=== PATIENT | male | born 1955 | race Caucasian/White ===

== ENCOUNTER 2016-09-23 17:56 | Emergency (ER) | payer OTHER, MEDICAID ==
[~2016-09-23] VITALS: Ht 170.2 cm; Wt 90.7 kg
[~2016-09-23 17:56] MED LIST: ALBU0.084 IN; ARIP1TAB5 PO; ASPI-264 PO; BUPR150T6 PO; COMIH IN; CYCL1TAB18 PO; ENAL-3 PO; FLUO20CA19 PO; GABA-339 PO; HYDROCODON-ACETAMINOPHN PO; ISOS1TAB37 PO; METO-158 PO; NIAC500T13 PO; OMEP20CA74 OR; QUET300T3 PO; ROPI2TAB4 PO; SERT-160 PO; SIMV-13 PO
[2016-09-23 18:55] LABS: Basophils # (auto) 0.1 uL; Basophils % (auto) 0.7 % (0.0-2.0); Eosinophils # (auto) 0.2 uL; Eosinophils % (auto) 1.7 % (0.0-7.0); Hematocrit 51.5 % (41.0-53.0); Hemoglobin 17.5 g/dL (13.5-17.5); Lymphocytes # (auto) 2.2 uL; Lymphocytes % (auto) 22.7 % (10.0-50.0); Mean Corpuscular Hemoglobin 29.5 pg (28.0-32.0); Mean Corpuscular Volume 86.7 fL (80.0-100.0); Mean Platelet Volume 8.6 fL (7.4-10.4); Monocytes # (auto) 0.6 uL; Neutrophils # (auto) 6.7 uL; Neutrophils % (auto) 68.9 % (37.0-80.0); Platelet Count (auto) 289 10^3/uL (140-450); Red Cell Distribution Width 14.8 % (11.6-16.0); White Blood Cell 9.8 10^3/uL (4.4-10.8)
[2016-09-23 19:18] LABS: Alkaline Phosphatase 114 U/L (45-117); Anion Gap 9 (5-15); Aspartate Aminotransferase 16 U/L (15-37); BUN/Creatinine Ratio 17.8; Bilirubin, Total 0.4 mg/dL (0.2-1.0); Blood Urea Nitrogen 19 mg/dL (7-18); Calcium 9.3 mg/dL (8.5-10.1); Carbon Dioxide 24 mmol/L (21-32); Chloride 107 mmol/L (98-107); GFR African American 90 mL/min; GFR Non-African American 74 mL/min; Glucose 121 mg/dL (74-106); Magnesium 2.2 mg/dL (1.6-2.6); Potassium 3.8 mmol/L (3.5-5.1); Sodium 140 mmol/L (136-145); Total Protein 7.2 g/dL (6.4-8.2)
[2016-09-23 19:43] VITALS: BP 129/92
== END 2016-09-24 00:26 | disposition left against medical advice (07) ==
LOC: ER 18:08
DX: R07.9 Chest pain, unspecified (principal); R42 Dizziness and giddiness; Z53.21 Procedure and treatment not carried out due to patient leaving prior to being seen by health care provider
CPT/HCPCS: 36415; 70450; 80053; 83735; 84484; 85025; 93005

== ENCOUNTER 2016-10-09 16:56 | Emergency (ER) | payer OTHER, MEDICAID ==
[~2016-10-09] VITALS: Ht 172.7 cm; Wt 91.6 kg
[2016-10-09] MEDS ORDERED: CYCLOBENZAPRINE HCL 10 MG TAB PO ONE (19:00)
[2016-10-09] MEDS ORDERED: IBUPROFEN 600 MG TAB PO ONE (19:00)
[2016-10-09 19:13] VITALS: BP 106/71
== END 2016-10-09 20:52 | disposition home or self-care (01) ==
LOC: ER 17:05
DX: S16.1XXA Strain of muscle, fascia and tendon at neck level, initial encounter (principal); S00.93XA Contusion of unspecified part of head, initial encounter; S50.01XA Contusion of right elbow, initial encounter; J44.9 Chronic obstructive pulmonary disease, unspecified; N18.9 Chronic kidney disease, unspecified; E78.5 Hyperlipidemia, unspecified; I12.9 Hypertensive chronic kidney disease with stage 1 through stage 4 chronic kidney disease, or unspecified chronic kidney disease; I25.2 Old myocardial infarction; F17.210 Nicotine dependence, cigarettes, uncomplicated; F12.10 Cannabis abuse, uncomplicated; F15.10 Other stimulant abuse, uncomplicated; F14.10 Cocaine abuse, uncomplicated; V43.62XA Car passenger injured in collision with other type car in traffic accident, initial encounter; Z79.899 Other long term (current) drug therapy; Y93.89 Activity, other specified; Y92.89 Other specified places as the place of occurrence of the external cause; Y99.8 Other external cause status
CPT/HCPCS: 70450; 72125

== ENCOUNTER 2017-06-07 19:16 | Inpatient (IN) | payer OTHER, MEDICAID ==
[~2017-06-07] VITALS: Ht 170.2 cm; Wt 108.8 kg
[2017-06-07 20:17] LABS: Basophils # (auto) 0.1 uL; Basophils % (auto) 0.7 % (0.0-2.0); Eosinophils # (auto) 0.1 uL; Eosinophils % (auto) 1.1 % (0.0-7.0); Hematocrit 51.4 % (41.0-53.0); Hemoglobin 17.2 g/dL (13.5-17.5); Lymphocytes # (auto) 1.8 uL; Lymphocytes % (auto) 18.8 % (10.0-50.0); Mean Corpuscular Hemoglobin 29.6 pg (28.0-32.0); Mean Corpuscular Hgb Conc. 33.5 g/dL (32.0-36.0); Mean Corpuscular Volume 88.5 fL (80.0-100.0); Monocytes # (auto) 0.3 uL; Monocytes % (auto) 3.3 % (0.0-12.0); Neutrophils # (auto) 7.3 uL; Neutrophils % (auto) 76.1 % (37.0-80.0); Nucleated Red Blood Cells % 0.2 %; Platelet Count (auto) 252 10^3/uL (140-450); Red Blood Cells 5.81 10^6/uL (4.5-5.90); Red Cell Distribution Width 13.8 % (11.8-14.3); White Blood Cell 9.7 10^3/uL (4.4-10.8)
[2017-06-07 20:29] LABS: Albumin 3.7 g/dL (3.4-5.0); Anion Gap 11 (5-15); BUN/Creatinine Ratio 11.5; Blood Urea Nitrogen 12 mg/dL (7-18); Calcium 8.5 mg/dL (8.5-10.1); Carbon Dioxide 21 mmol/L (21-32); Chloride 107 mmol/L (98-107); GFR African American 93 mL/min; GFR Non-African American 77 mL/min; Glucose 163 mg/dL (74-106); Magnesium 2.2 mg/dL (1.6-2.6); Potassium 3.6 mmol/L (3.5-5.1); Sodium 139 mmol/L (136-145)
[2017-06-07 20:41] LABS: Alanine Aminotransferase 41 U/L (16-61); Alkaline Phosphatase 94 U/L (45-117); Aspartate Aminotransferase 21 U/L (15-37); Bilirubin, Total 0.4 mg/dL (0.2-1.0)
[2017-06-07] MEDS ORDERED: MORPHINE SULFATE 4 MG/ML SYR/VIAL IV ONE (22:15)
[2017-06-07] MEDS ORDERED: ONDANSETRON HCL 4 MG/2 ML VIAL IV ONE (22:15)
[2017-06-07 22:46] LABS: INR 0.98 (0.9-1.15); Partial Thromboplastin Time 27.1 sec (22.64-33.71); Prothrombin Time 10.7 sec (9.37-12.3)
[2017-06-07] MEDS ORDERED: NITROGLYCERIN 0.4 MG SL TAB SL PRN (23:00)
[2017-06-07] MEDS ORDERED: ACETAMINOPHEN 325 MG TAB PO PRN (23:00)
[2017-06-07] MEDS ORDERED: QUEtiapine FUMARATE 100 MG TAB PO ONE (23:00)
[2017-06-07] MEDS ORDERED: ONDANSETRON HCL 4 MG/2 ML VIAL IV PRN (23:00)
[2017-06-07] MEDS ORDERED: HYDROcodone-ACET 5/325MG TAB PO PRN (23:00)
[2017-06-07] MEDS ORDERED: TEMAZEPAM 15 MG CAP PO PRN (23:00)
[2017-06-08] VITALS (8 sets, daily range): BP systolic 81–144; BP diastolic 54–83
[2017-06-08 05:40] LABS: Basophils # (auto) 0 uL; Basophils % (auto) 0.4 % (0.0-2.0); Eosinophils # (auto) 0.1 uL; Eosinophils % (auto) 1.3 % (0.0-7.0); Hematocrit 45.8 % (41.0-53.0); Hemoglobin 15.5 g/dL (13.5-17.5); Lymphocytes # (auto) 2.2 uL; Lymphocytes % (auto) 28.6 % (10.0-50.0); Mean Corpuscular Hemoglobin 30.2 pg (28.0-32.0); Mean Corpuscular Hgb Conc. 33.9 g/dL (32.0-36.0); Monocytes # (auto) 0.6 uL; Monocytes % (auto) 7.4 % (0.0-12.0); Neutrophils # (auto) 4.7 uL; Neutrophils % (auto) 62.3 % (37.0-80.0); Nucleated Red Blood Cells % 0.1 %; Platelet Count (auto) 198 10^3/uL (140-450); Red Blood Cells 5.14 10^6/uL (4.5-5.90); Red Cell Distribution Width 13.7 % (11.8-14.3); White Blood Cell 7.5 10^3/uL (4.4-10.8)
[2017-06-08 05:50] LABS: Albumin 3.2 g/dL (3.4-5.0); BUN/Creatinine Ratio 11.9; Calcium 8.6 mg/dL (8.5-10.1); Potassium 3.6 mmol/L (3.5-5.1)
[2017-06-08 05:53] LABS: Bilirubin, Total 0.2 mg/dL (0.2-1.0); Total Protein 5.9 g/dL (6.4-8.2)
[2017-06-08 09:49] LABS: Urine Bacteria NONE SEEN /hpf (None Seen); Urine Blood Negative /uL (Negative); Urine Mucus FEW (None Seen); Urine Specific Gravity 1.018 (1.001-1.035); Urine WBC 1 /hpf (0 - 3)
[2017-06-08] MEDS ORDERED: ENOXAPARIN SOD 40 MG/0.4 ML SYRINGE SC SCH (10:00)
[2017-06-08] MEDS ORDERED: SERTRALINE HCL 50 MG TAB PO SCH (10:00)
[2017-06-08] MEDS ORDERED: ASPirin 81 mg TAB PO SCH (10:00)
[2017-06-08] MEDS ORDERED: ENALAPRIL MALEATE 10 MG TAB PO SCH (10:00)
[2017-06-08] MEDS ORDERED: GABAPENTIN 300 MG CAP PO SCH (10:00)
[2017-06-08] MEDS ORDERED: FAMOTIDINE 20 MG TAB PO SCH (10:00)
[2017-06-08] MEDS ORDERED: ISOSORBIDE DINITRATE 10 MG TAB PO SCH (10:00)
[2017-06-08] MEDS ORDERED: METOPROLOL SUCCINATE XL 50 MG TAB PO SCH (10:00)
[2017-06-08] MEDS ORDERED: buPROPion HCL 100 MG TAB PO SCH ×2 (10:00→12:00)
[2017-06-08] MEDS ORDERED: PATIENTS OWN MEDICATION (simvastatin 40 MG) PO SCH (22:00)
[2017-06-08] MEDS ORDERED: ATORVASTATIN 20 MG TAB PO SCH (22:00)
[2017-06-08] MEDS ORDERED: QUEtiapine FUMARATE 100 MG TAB PO SCH (22:00)
== END 2017-06-08 17:21 | disposition home or self-care (01) | DRG 313 ==
LOC: ER 19:16 → TELE 19:17 → WEST WING 23:32
PROVIDERS: ADMIT Nurse Practitioner; ATTEND Internal Medicine
DX: R07.89 Other chest pain (principal); I25.10 Atherosclerotic heart disease of native coronary artery without angina pectoris; E66.9 Obesity, unspecified; E78.5 Hyperlipidemia, unspecified; F15.90 Other stimulant use, unspecified, uncomplicated; F17.210 Nicotine dependence, cigarettes, uncomplicated; F32.9 Major depressive disorder, single episode, unspecified; I10 Essential (primary) hypertension; F41.9 Anxiety disorder, unspecified; G47.00 Insomnia, unspecified; J44.9 Chronic obstructive pulmonary disease, unspecified; Z82.49 Family history of ischemic heart disease and other diseases of the circulatory system; Z83.3 Family history of diabetes mellitus; Z68.37 Body mass index [BMI] 37.0-37.9, adult; I25.2 Old myocardial infarction; Z86.73 Personal history of transient ischemic attack (TIA), and cerebral infarction without residual deficits; Z79.899 Other long term (current) drug therapy; Z90.49 Acquired absence of other specified parts of digestive tract; Z79.82 Long term (current) use of aspirin
CPT/HCPCS: 36415; 71045; 80053; 81001; 83735; 83880; 84443; 84484; 85025; 85610; 85730; 93005; 93306; 94761; 96374; 96375; J2405

== ENCOUNTER 2017-06-13 21:14 | Emergency (ER) | payer OTHER, MEDICAID ==
[~2017-06-13] VITALS: Ht 170.2 cm; Wt 90.7 kg
[~2017-06-13 21:14] MED LIST changes: -OMEP20CA74 OR; -ROPI2TAB4 PO
[2017-06-13 21:24] VITALS: BP 116/82
[2017-06-13 22:11] LABS: Basophils # (auto) 0.1 uL; Basophils % (auto) 0.9 % (0.0-2.0); Eosinophils # (auto) 0.1 uL; Eosinophils % (auto) 1.2 % (0.0-7.0); Hematocrit 50.2 % (41.0-53.0); Hemoglobin 17.1 g/dL (13.5-17.5); Lymphocytes # (auto) 2.5 uL; Lymphocytes % (auto) 25.5 % (10.0-50.0); Mean Corpuscular Hemoglobin 29.8 pg (28.0-32.0); Mean Corpuscular Hgb Conc. 34.1 g/dL (32.0-36.0); Mean Corpuscular Volume 87.3 fL (80.0-100.0); Monocytes # (auto) 0.7 uL; Monocytes % (auto) 6.8 % (0.0-12.0); Neutrophils # (auto) 6.5 uL; Neutrophils % (auto) 65.6 % (37.0-80.0); Nucleated Red Blood Cells % 0.2 %; Platelet Count (auto) 262 10^3/uL (140-450); Red Blood Cells 5.74 10^6/uL (4.5-5.90); Red Cell Distribution Width 13.4 % (11.8-14.3)
[2017-06-13 22:15] LABS: Urine Bacteria NONE SEEN /hpf (None Seen); Urine Blood Negative /uL (Negative); Urine WBC 1 /hpf (0 - 3)
[2017-06-13 22:27] LABS: Alcohol, Urine < 3.0 mg/dL (0-5); Amphetamine Screen, Urine NEGATIVE (NEGATIVE); Barbiturate Scree,Urine NEGATIVE (NEGATIVE); Benzodiazephine Screen, Urine NEGATIVE (NEGATIVE); Cannabinoid Screen, Urine NEGATIVE (NEGATIVE); Cocaine Screen, Urine NEGATIVE (NEGATIVE); Opiate Scree,Urine NEGATIVE (NEGATIVE); Phencyclidine Screen, Urine NEGATIVE (NEGATIVE)
[2017-06-13 22:34] LABS: Partial Thromboplastin Time 26.8 sec (22.64-33.71); Prothrombin Time 10.9 sec (9.37-12.3)
[2017-06-13 22:44] LABS: Alanine Aminotransferase 36 U/L (16-61); Albumin 3.7 g/dL (3.4-5.0); Alkaline Phosphatase 86 U/L (45-117); Anion Gap 10 (5-15); Aspartate Aminotransferase 14 U/L (15-37); BUN/Creatinine Ratio 14.5; Bilirubin, Total 0.3 mg/dL (0.2-1.0); Blood Urea Nitrogen 17 mg/dL (7-18); Calcium 9.1 mg/dL (8.5-10.1); Carbon Dioxide 21 mmol/L (21-32); Chloride 109 mmol/L (98-107); GFR African American 81 mL/min; GFR Non-African American 67 mL/min; Glucose 129 mg/dL (74-106); Magnesium 2.4 mg/dL (1.6-2.6); Sodium 140 mmol/L (136-145); Total Protein 7.3 g/dL (6.4-8.2)
== END 2017-06-14 05:34 | disposition left against medical advice (07) ==
LOC: ER 21:14
DX: R07.9 Chest pain, unspecified (principal); Z53.21 Procedure and treatment not carried out due to patient leaving prior to being seen by health care provider
CPT/HCPCS: 36415; 71045; 80053; 80307; 81001; 83735; 83880; 84443; 84484; 85025; 85610; 85730; 93005

== ENCOUNTER 2017-07-08 14:21 | Inpatient (IN) | payer OTHER, MEDICAID ==
[~2017-07-08] VITALS: Ht 170.2 cm; Wt 99.4 kg
[2017-07-08 07:28] VITALS: BP 113/83
[2017-07-08 15:04] LABS: Hematocrit 49.9 % (41.0-53.0); Hemoglobin 16.8 g/dL (13.5-17.5); Mean Corpuscular Hemoglobin 29.6 pg (28.0-32.0); Mean Corpuscular Hgb Conc. 33.7 g/dL (32.0-36.0); Mean Corpuscular Volume 87.9 fL (80.0-100.0); Platelet Count (auto) 265 10^3/uL (140-450); Red Blood Cells 5.67 10^6/uL (4.5-5.90); Red Cell Distribution Width 13.6 % (11.8-14.3)
[2017-07-08 15:26] LABS: Alanine Aminotransferase 47 U/L (16-61); Albumin 3.7 g/dL (3.4-5.0); Alkaline Phosphatase 88 U/L (45-117); Anion Gap 10 (5-15); Aspartate Aminotransferase 26 U/L (15-37); BUN/Creatinine Ratio 10.7; Bilirubin, Total 0.5 mg/dL (0.2-1.0); Blood Urea Nitrogen 11 mg/dL (7-18); Carbon Dioxide 21 mmol/L (21-32); Chloride 107 mmol/L (98-107); GFR African American 94 mL/min; GFR Non-African American 78 mL/min; Glucose 97 mg/dL (74-106); Potassium 4.3 mmol/L (3.5-5.1); Sodium 138 mmol/L (136-145); Total Protein 7.3 g/dL (6.4-8.2)
[2017-07-08 15:39] LABS: Band Neutrophils % (manual) 0
[2017-07-08 15:40] LABS: Basophils % (manual) 0 (0.0-2.0); Blast Cells 0; Metamyelocytes % 0; Myelocytes % 0; Promyelocytes % 0; Reactive Lymphocytes 0
[2017-07-08] MEDS ORDERED: SODIUM CHLORIDE 0.9% 1,000 ML IVB ONE (15:46)
[2017-07-08 15:48] LABS: INR 0.98 (0.9-1.15); Partial Thromboplastin Time 27.3 sec (22.64-33.71); Prothrombin Time 10.7 sec (9.37-12.3)
[2017-07-08 15:58] LABS: Eosinophils % (manual) 4 (0-7); Lymphocytes % (manual) 25 (10.0-50.0); Monocytes % (manual) 4 (0-12)
[2017-07-08 17:08] LABS: Blood Alcohol < 3.0 mg/dL (0-5); Magnesium 2.5 mg/dL (1.6-2.6)
[2017-07-08 17:21] LABS: Acetaminophen < 2.0 ug/mL (10-30); Salicylate 2.6 mg/dL (2.8-20.0)
[2017-07-08] MEDS ORDERED: MORPHINE SULFATE 4 MG/ML SYR/VIAL IV PRN (18:30)
[2017-07-08] MEDS ORDERED: NITROGLYCERIN 0.4 MG SL TAB SL PRN (18:30)
[2017-07-08] MEDS ORDERED: TEMAZEPAM 15 MG CAP PO PRN (18:30)
[2017-07-08] MEDS ORDERED: LORazepam 0.5 MG TAB PO PRN (18:30)
[2017-07-08] MEDS ORDERED: PROMETHAZINE HCL 25 MG/ML 1ML IV PRN (18:30)
[2017-07-08] MEDS ORDERED: ACETAMINOPHEN 500 MG TAB PO PRN (18:30)
[2017-07-08] MEDS ORDERED: CYCLOBENZAPRINE HCL 10 MG TAB PO PRN (18:30)
[2017-07-08] MEDS: SODIUM CHLORIDE 0.9% 1,000 ML IV SCH (18:34)
[2017-07-08] MEDS: HYDROcodone-ACET 5/325MG TAB PO PRN (18:40)
[2017-07-08] MEDS ORDERED: ARIP1TAB14 PO (19:00)
[2017-07-08] MEDS ORDERED: FLUO1TAB12 PO (19:04)
[2017-07-08] MEDS: MORPHINE SULFATE 4 MG/ML SYR/VIAL IV PRN (21:09)
[2017-07-08 22:00] VITALS: BP 113/83
[2017-07-08] MEDS ORDERED: ALBUTEROL SULF 2.5 MG/0.5ML(0.5%) NEB SOLN NEB SCH (22:00)
[2017-07-08] MEDS ORDERED: Niacin SR 500mg TAB PO SCH (22:00)
[2017-07-08] MEDS ORDERED: ALBUTEROL IN SCH (22:00)
[2017-07-08] MEDS ORDERED: IPRATROPIUM IN SCH (22:00)
[2017-07-08] MEDS: IPRATROPIUM BROM 0.5 MG/2.5ML INH SOL NEB SCH (22:06)
[2017-07-08] MEDS: ALBUTEROL SULF 2.5 MG/0.5ML(0.5%) NEB SOLN NEB SCH (22:06)
[2017-07-08] MEDS: ATORVASTATIN 20 MG TAB PO SCH (23:21)
[2017-07-08] MEDS: GABAPENTIN 400 MG CAP PO SCH (23:21)
[2017-07-09] MEDS: MORPHINE SULFATE 4 MG/ML SYR/VIAL IV PRN ×3 (03:23→22:24)
[2017-07-09] MEDS: SODIUM CHLORIDE 0.9% 1,000 ML IV SCH (04:30)
[2017-07-09 05:00] VITALS: BP 112/76
[2017-07-09] MEDS: IPRATROPIUM BROM 0.5 MG/2.5ML INH SOL NEB SCH ×3 (05:39→22:08)
[2017-07-09] MEDS: ALBUTEROL SULF 2.5 MG/0.5ML(0.5%) NEB SOLN NEB SCH ×3 (05:40→22:08)
[2017-07-09 06:05] LABS: Basophils # (auto) 0 uL; Basophils % (auto) 0.4 % (0.0-2.0); Eosinophils # (auto) 0.1 uL; Eosinophils % (auto) 0.9 % (0.0-7.0); Hematocrit 42.8 % (41.0-53.0); Hemoglobin 14.9 g/dL (13.5-17.5); Lymphocytes # (auto) 1.8 uL; Lymphocytes % (auto) 17.9 % (10.0-50.0); Mean Corpuscular Hemoglobin 30.6 pg (28.0-32.0); Mean Corpuscular Hgb Conc. 34.9 g/dL (32.0-36.0); Mean Corpuscular Volume 87.8 fL (80.0-100.0); Monocytes # (auto) 0.8 uL; Monocytes % (auto) 7.9 % (0.0-12.0); Neutrophils # (auto) 7.5 uL; Neutrophils % (auto) 72.9 % (37.0-80.0); Nucleated Red Blood Cells % 0.1 %; Platelet Count (auto) 203 10^3/uL (140-450); Red Blood Cells 4.87 10^6/uL (4.5-5.90); Red Cell Distribution Width 13.8 % (11.8-14.3); White Blood Cell 10.3 10^3/uL (4.4-10.8)
[2017-07-09] MEDS: GABAPENTIN 400 MG CAP PO SCH ×3 (06:11→21:51)
[2017-07-09 06:28] LABS: Cholesterol 181 mg/dL (< 200); HDL Cholesterol 36 mg/dL (40-59); LDL Cholesterol 123 mg/dL (< 100); Triglycerides 174 mg/dL (< 150)
[2017-07-09] MEDS ORDERED: TIOTCAP IN (09:00)
[2017-07-09] MEDS ORDERED: IBUP800T24 PO (09:00)
[2017-07-09] MEDS ORDERED: NITR0.4S29 SL (09:00)
[2017-07-09] MEDS ORDERED: AMLO5TAB2 PO (09:00)
[2017-07-09] MEDS ORDERED: LORA-653 PO (09:00)
[2017-07-09 09:02] VITALS: BP 109/70
[2017-07-09 09:51] LABS: Folate (Folic Acid) 14.99 ng/mL (5.38-24)
[2017-07-09] MEDS: METOPROLOL SUCCINATE XL 50 MG TAB PO SCH (10:00)
[2017-07-09] MEDS ORDERED: ISOSORBIDE MONONITRATE 60 MG TAB PO SCH (10:00)
[2017-07-09] MEDS ORDERED: ABILIFY 20 MG PO SCH (10:00)
[2017-07-09] MEDS ORDERED: SERTRALINE HCL 150 MG PO SCH (10:00)
[2017-07-09] MEDS ORDERED: QUETIAPINE 400 MG PO SCH (10:00)
[2017-07-09] MEDS ORDERED: NITROGLYCERIN 0.2MG/HR TOPICAL PATCH TD SCH (10:00)
[2017-07-09] MEDS ORDERED: ENALAPRIL MALEATE 10 MG TAB PO SCH (10:00)
[2017-07-09] MEDS: ASPirin-EC 325mg tab PO SCH (10:29)
[2017-07-09] MEDS: FLUoxetine HCL 20 MG CAP PO SCH (10:29)
[2017-07-09] MEDS ORDERED: LORazepam 2MG/ML-1ML VIAL IV ONE (10:30)
[2017-07-09] MEDS: HYDROcodone-ACET 5/325MG TAB PO PRN (10:43)
[2017-07-09 13:00] VITALS: BP 107/68
[2017-07-09 15:05] LABS: Urine Bacteria NONE SEEN /hpf (None Seen); Urine Blood Negative /uL (Negative); Urine WBC 1 /hpf (0 - 3)
[2017-07-09 15:11] LABS: Alcohol, Urine < 3.0 mg/dL (0-5); Amphetamine Screen, Urine NEGATIVE (NEGATIVE); Barbiturate Scree,Urine NEGATIVE (NEGATIVE); Benzodiazephine Screen, Urine NEGATIVE (NEGATIVE); Cannabinoid Screen, Urine NEGATIVE (NEGATIVE); Cocaine Screen, Urine NEGATIVE (NEGATIVE); Opiate Scree,Urine POSITIVE (NEGATIVE); Phencyclidine Screen, Urine NEGATIVE (NEGATIVE)
[2017-07-09 17:06] VITALS: BP 100/60
[2017-07-09] MEDS ORDERED: LORazepam 2MG/ML-1ML VIAL IV PRN (20:15)
[2017-07-09] MEDS: ARIPIPRAZOLE 20 MG PO SCH (21:50)
[2017-07-09] MEDS: ATORVASTATIN 20 MG TAB PO SCH (21:51)
[2017-07-09] MEDS ORDERED: SEROQUEL 400 MG PO SCH (22:00)
[2017-07-09 22:21] VITALS: BP 110/72
[2017-07-10 04:28] VITALS: BP 121/71
[2017-07-10] MEDS: GABAPENTIN 400 MG CAP PO SCH ×2 (06:01→14:00)
[2017-07-10] MEDS: IPRATROPIUM BROM 0.5 MG/2.5ML INH SOL NEB SCH ×3 (06:02→19:53)
[2017-07-10] MEDS: ALBUTEROL SULF 2.5 MG/0.5ML(0.5%) NEB SOLN NEB SCH ×3 (06:02→19:53)
[2017-07-10 08:34] VITALS: BP 113/70
[2017-07-10] MEDS: METOPROLOL SUCCINATE XL 50 MG TAB PO SCH (10:00)
[2017-07-10] MEDS: FLUoxetine HCL 20 MG CAP PO SCH (10:00)
[2017-07-10] MEDS: ASPirin-EC 325mg tab PO SCH (10:00)
[2017-07-10 10:57] LABS: Basophils # (auto) 0 uL; Basophils % (auto) 0.3 % (0.0-2.0); Eosinophils # (auto) 0 uL; Eosinophils % (auto) 0.6 % (0.0-7.0); Hematocrit 40.8 % (41.0-53.0); Hemoglobin 13.9 g/dL (13.5-17.5); Lymphocytes # (auto) 0.9 uL; Lymphocytes % (auto) 11.1 % (10.0-50.0); Mean Corpuscular Hgb Conc. 34.1 g/dL (32.0-36.0); Monocytes # (auto) 0.6 uL; Monocytes % (auto) 7.3 % (0.0-12.0); Neutrophils # (auto) 6.5 uL; Neutrophils % (auto) 80.7 % (37.0-80.0); Nucleated Red Blood Cells % 0.1 %; Platelet Count (auto) 202 10^3/uL (140-450); Red Blood Cells 4.64 10^6/uL (4.5-5.90); Red Cell Distribution Width 13.5 % (11.8-14.3)
[2017-07-10 11:04] LABS: Albumin 3.3 g/dL (3.4-5.0); BUN/Creatinine Ratio 11.7; Bilirubin, Total 0.4 mg/dL (0.2-1.0); Calcium 8.2 mg/dL (8.5-10.1); Potassium 4.1 mmol/L (3.5-5.1); Total Protein 6.5 g/dL (6.4-8.2)
[2017-07-10 12:16] VITALS: BP 109/66
[2017-07-10] MEDS ORDERED: cefTRIAXone 1GM/10ml IVPUSH 10 ML IV ONE (15:15)
[2017-07-10] MEDS ORDERED: CLINDAMYCIN 600 MG/4 ML VL IM SCH (16:00)
[2017-07-10 17:10] VITALS: BP 131/59
[2017-07-10] MEDS: CLINDAMYCIN 600MG IV 50 ML IV SCH ×2 (17:38→23:44)
[2017-07-10] MEDS: ARIPIPRAZOLE 20 MG PO SCH (21:34)
[2017-07-10] MEDS: ATORVASTATIN 20 MG TAB PO SCH (21:34)
[2017-07-10 21:43] VITALS: BP 129/90
[2017-07-11 05:00] VITALS: BP 145/91
[2017-07-11] MEDS: ALBUTEROL SULF 2.5 MG/0.5ML(0.5%) NEB SOLN NEB SCH ×3 (07:58→22:09)
[2017-07-11] MEDS: IPRATROPIUM BROM 0.5 MG/2.5ML INH SOL NEB SCH ×3 (07:58→22:09)
[2017-07-11] MEDS: HYDROcodone-ACET 5/325MG TAB PO PRN (08:01)
[2017-07-11] MEDS: CLINDAMYCIN 600MG IV 50 ML IV SCH ×3 (08:01→23:44)
[2017-07-11 08:42] VITALS: BP 149/99
[2017-07-11 09:35] VITALS: BP 149/99
[2017-07-11] MEDS: cefTRIAXone 1GM/10ml IVPUSH 10 ML IV SCH (09:40)
[2017-07-11] MEDS: ASPirin-EC 325mg tab PO SCH (09:40)
[2017-07-11] MEDS: FLUoxetine HCL 20 MG CAP PO SCH (09:41)
[2017-07-11] MEDS: METOPROLOL SUCCINATE XL 50 MG TAB PO SCH (09:41)
[2017-07-11] MEDS: MORPHINE SULFATE 4 MG/ML SYR/VIAL IV PRN ×2 (11:47→21:13)
[2017-07-11 12:16] VITALS: BP 137/88
[2017-07-11 16:34] VITALS: BP 122/83
[2017-07-11] MEDS: GABAPENTIN 400 MG CAP PO SCH ×2 (16:56→21:13)
[2017-07-11] MEDS: ARIPIPRAZOLE 20 MG PO SCH (21:13)
[2017-07-11] MEDS: ATORVASTATIN 20 MG TAB PO SCH (21:13)
[2017-07-11 22:00] VITALS: BP 152/96
[2017-07-12 05:35] VITALS: BP 121/80
[2017-07-12] MEDS: GABAPENTIN 400 MG CAP PO SCH (05:38)
[2017-07-12 07:27] VITALS: BP 128/86
[2017-07-12] MEDS: IPRATROPIUM BROM 0.5 MG/2.5ML INH SOL NEB SCH (07:55)
[2017-07-12] MEDS: ALBUTEROL SULF 2.5 MG/0.5ML(0.5%) NEB SOLN NEB SCH (07:55)
[2017-07-12] MEDS: cefTRIAXone 1GM/10ml IVPUSH 10 ML IV SCH (08:57)
[2017-07-12] MEDS: MORPHINE SULFATE 4 MG/ML SYR/VIAL IV PRN (08:57)
[2017-07-12] MEDS: CLINDAMYCIN 600MG IV 50 ML IV SCH (08:57)
[2017-07-12] MEDS ORDERED: ADENOSINE 83 MG in GIVE UN-DILUTED 0 ML IV ONE (09:15)
[2017-07-12] MEDS: METOPROLOL SUCCINATE XL 50 MG TAB PO SCH (09:41)
[2017-07-12] MEDS: ASPirin-EC 325mg tab PO SCH (10:06)
[2017-07-12] MEDS: FLUoxetine HCL 20 MG CAP PO SCH (10:06)
[2017-07-12 12:14] VITALS: BP 127/89
== END 2017-07-12 12:18 | disposition left against medical advice (07) | DRG 91 ==
LOC: ER 14:21 → TELE 14:22 → TELE-CENTR 19:30 → CENTRAL 07-11 10:50
PROVIDERS: ADMIT Internal Medicine; ATTEND Internal Medicine
DX: G92 Toxic encephalopathy (principal); A41.9 Sepsis, unspecified organism; J69.0 Pneumonitis due to inhalation of food and vomit; J44.0 Chronic obstructive pulmonary disease with (acute) lower respiratory infection; F20.9 Schizophrenia, unspecified; E11.9 Type 2 diabetes mellitus without complications; E66.9 Obesity, unspecified; E78.5 Hyperlipidemia, unspecified; F17.210 Nicotine dependence, cigarettes, uncomplicated; F31.9 Bipolar disorder, unspecified; G47.33 Obstructive sleep apnea (adult) (pediatric); G89.29 Other chronic pain; F41.9 Anxiety disorder, unspecified; M54.5 Low back pain; I10 Essential (primary) hypertension; I25.10 Atherosclerotic heart disease of native coronary artery without angina pectoris; Z79.82 Long term (current) use of aspirin; Z79.899 Other long term (current) drug therapy; Z82.0 Family history of epilepsy and other diseases of the nervous system; Z82.49 Family history of ischemic heart disease and other diseases of the circulatory system; Z83.3 Family history of diabetes mellitus; Z86.73 Personal history of transient ischemic attack (TIA), and cerebral infarction without residual deficits; Z68.34 Body mass index [BMI] 34.0-34.9, adult
CPT/HCPCS: 36415; 70450; 70551; 71045; 71046; 80053; 80061; 80307; 80320; 80329; 81001; 82550; 82607; 82746; 82962; 83605; 83735; 84443; 84484; 85007; 85025; 85027; 85379; 85610; 85652; 85730; 86141; 87040; 87081; 93005; 94640; 94761; 95819; 97163; J0153; J3490

== ENCOUNTER 2017-07-16 19:21 | Emergency (ER) | payer OTHER, MEDICAID ==
[~2017-07-16] VITALS: Ht 170.2 cm; Wt 90.7 kg
[~2017-07-16 19:21] MED LIST changes: +AMLO5TAB2 PO; +ARIP1TAB14 PO; -ARIP1TAB5 PO; +FLUO1TAB12 PO; -FLUO20CA19 PO; +IBUP800T24 PO; +LORA-653 PO; +NITR0.4S29 SL; +TIOTCAP IN
[2017-07-16 19:30] VITALS: BP 134/87
[2017-07-16 20:35] LABS: Basophils # (auto) 0.1 uL; Basophils % (auto) 0.5 % (0.0-2.0); Eosinophils # (auto) 0.2 uL; Eosinophils % (auto) 1.4 % (0.0-7.0); Hematocrit 47.9 % (41.0-53.0); Lymphocytes # (auto) 2.2 uL; Lymphocytes % (auto) 21.4 % (10.0-50.0); Mean Corpuscular Hemoglobin 29.5 pg (28.0-32.0); Mean Corpuscular Hgb Conc. 33.5 g/dL (32.0-36.0); Mean Corpuscular Volume 88.2 fL (80.0-100.0); Monocytes # (auto) 0.8 uL; Monocytes % (auto) 7.8 % (0.0-12.0); Neutrophils # (auto) 7.2 uL; Neutrophils % (auto) 68.9 % (37.0-80.0); Nucleated Red Blood Cells % 0.2 %; Platelet Count (auto) 273 10^3/uL (140-450); Red Blood Cells 5.43 10^6/uL (4.5-5.90); White Blood Cell 10.5 10^3/uL (4.4-10.8)
[2017-07-16 20:49] LABS: INR 0.99 (0.9-1.15); Prothrombin Time 10.8 sec (9.37-12.3)
[2017-07-16 20:54] LABS: Albumin 3.7 g/dL (3.4-5.0); Anion Gap 7 (5-15); Blood Urea Nitrogen 14 mg/dL (7-18); Calcium 8.9 mg/dL (8.5-10.1); Carbon Dioxide 24 mmol/L (21-32); Chloride 109 mmol/L (98-107); Glucose 102 mg/dL (74-106); Magnesium 2.1 mg/dL (1.6-2.6); Potassium 3.9 mmol/L (3.5-5.1); Sodium 140 mmol/L (136-145)
[2017-07-16 20:56] LABS: Alanine Aminotransferase 38 U/L (16-61); Aspartate Aminotransferase 19 U/L (15-37); BUN/Creatinine Ratio 11.3; GFR African American 76 mL/min; GFR Non-African American 63 mL/min
[2017-07-16 21:01] LABS: Alkaline Phosphatase 92 U/L (45-117); Bilirubin, Total 0.3 mg/dL (0.2-1.0); Total Protein 7.2 g/dL (6.4-8.2)
== END 2017-07-16 23:48 | disposition left against medical advice (07) ==
LOC: ER 19:21
DX: R07.89 Other chest pain (principal); Z53.21 Procedure and treatment not carried out due to patient leaving prior to being seen by health care provider
CPT/HCPCS: 36415; 70450; 71045; 80053; 83735; 83880; 84484; 85025; 85610; 85730; 93005

== ENCOUNTER 2018-03-24 18:11 | Emergency (ER) | payer OTHER, MEDICAID ==
[~2018-03-24] VITALS: Ht 170.2 cm; Wt 104.3 kg
[~2018-03-24 18:11] MED LIST changes: +AMLO5TAB13 PO; -AMLO5TAB2 PO
[2018-03-24] MEDS ORDERED: LORazepam 2MG/ML-1ML VIAL ONE (18:29)
[2018-03-24 18:35] LABS: Basophils # (auto) 0 uL; Basophils % (auto) 0.6 % (0.0-2.0); Eosinophils # (auto) 0.1 uL; Eosinophils % (auto) 1.6 % (0.0-7.0); Hematocrit 50.1 % (41.0-53.0); Hemoglobin 16.8 g/dL (13.5-17.5); Lymphocytes # (auto) 1.9 uL; Lymphocytes % (auto) 25.9 % (10.0-50.0); Mean Corpuscular Hemoglobin 29.3 pg (28.0-32.0); Mean Corpuscular Hgb Conc. 33.4 g/dL (32.0-36.0); Mean Corpuscular Volume 87.6 fL (80.0-100.0); Monocytes # (auto) 0.7 uL; Monocytes % (auto) 9.1 % (0.0-12.0); Neutrophils # (auto) 4.5 uL; Neutrophils % (auto) 62.8 % (37.0-80.0); Nucleated Red Blood Cells % 0.2 %; Platelet Count (auto) 234 10^3/uL (140-450); Red Blood Cells 5.72 10^6/uL (4.5-5.90); Red Cell Distribution Width 13.3 % (11.8-14.3); White Blood Cell 7.2 10^3/uL (4.4-10.8)
[2018-03-24] MEDS ORDERED: LORazepam 2MG/ML-1ML VIAL IV ONE (18:45)
[2018-03-24 18:49] LABS: INR 0.93 (0.9-1.15); Partial Thromboplastin Time 25.2 sec (23.78-33.04)
[2018-03-24 18:50] LABS: Alanine Aminotransferase 75 U/L (16-61); Anion Gap 6 (5-15); Blood Urea Nitrogen 13 mg/dL (7-18); Calcium 9.1 mg/dL (8.5-10.1); Carbon Dioxide 27 mmol/L (21-32); Chloride 106 mmol/L (98-107); Glucose 109 mg/dL (74-106); Potassium 3.7 mmol/L (3.5-5.1); Sodium 139 mmol/L (136-145)
[2018-03-24 18:56] LABS: Alkaline Phosphatase 122 U/L (45-117); Aspartate Aminotransferase 30 U/L (15-37); Bilirubin, Total 0.4 mg/dL (0.2-1.0); GFR African American 72 mL/min; GFR Non-African American 59 mL/min; Total Protein 7.4 g/dL (6.4-8.2)
[2018-03-24] MEDS ORDERED: MORPHINE SULFATE 4 MG/ML SYR/VIAL IV ONE (19:00)
[2018-03-24] MEDS ORDERED: ONDANSETRON HCL 4 MG/2 ML VIAL IV ONE ×2 (19:00→20:15)
[2018-03-24] MEDS ORDERED: HYDROmorphone HCL 2 MG/ML VL IV ONE (20:15)
[2018-03-24 20:35] VITALS: BP 117/69
== END 2018-03-24 22:33 | disposition home or self-care (01) ==
LOC: ER 18:11
DX: J44.1 Chronic obstructive pulmonary disease with (acute) exacerbation (principal); I25.810 Atherosclerosis of coronary artery bypass graft(s) without angina pectoris; F41.9 Anxiety disorder, unspecified; E78.5 Hyperlipidemia, unspecified; I10 Essential (primary) hypertension; I25.2 Old myocardial infarction; F20.9 Schizophrenia, unspecified; F31.9 Bipolar disorder, unspecified; R51 Headache; F17.210 Nicotine dependence, cigarettes, uncomplicated; F12.10 Cannabis abuse, uncomplicated; F15.10 Other stimulant abuse, uncomplicated; Z86.73 Personal history of transient ischemic attack (TIA), and cerebral infarction without residual deficits; Z79.82 Long term (current) use of aspirin
CPT/HCPCS: 36415; 70450; 71045; 80053; 80320; 83880; 84484; 85025; 85379; 85610; 85730; 93005; 94761; 96374; 96375; 96376; 99284; J1170; J2060; J2270; J2405

== ENCOUNTER 2018-10-07 12:13 | Emergency (ER) | payer OTHER, MEDICAID ==
[~2018-10-07] VITALS: Ht 177.8 cm; Wt 113.4 kg
[~2018-10-07 12:13] MED LIST changes: -ALBU0.084 IN; -AMLO5TAB13 PO; -ARIP1TAB14 PO; +ARIP2TAB PO; -ASPI-264 PO; +ASPI325T4 PO; -BUPR150T6 PO; +CITA-77 PO; +CLOP75TA41 PO; -COMIH IN; -CYCL1TAB18 PO; -ENAL-3 PO; +FENT25DI2 TD; -FLUO1TAB12 PO; -HYDROCODON-ACETAMINOPHN PO; -IBUP800T24 PO; -ISOS1TAB37 PO; -LORA-653 PO; +LORA2CON5 SL; -METO-158 PO; -NIAC500T13 PO; +OXYC325T14 PO; -QUET300T3 PO; +RANO500T PO; -SERT-160 PO; -TIOTCAP IN; +UMEC1AER IN; +[UNRECOGNIZED DRUG - CODE] SL; +[UNRECOGNIZED DRUG - CODE] SL
[2018-10-07 14:12] LABS: Basophils # (auto) 0 uL; Basophils % (auto) 0.2 % (0.0-2.0); Eosinophils # (auto) 0.1 uL; Eosinophils % (auto) 0.8 % (0.0-7.0); Hematocrit 44.7 % (41.0-53.0); Hemoglobin 15.1 g/dL (13.5-17.5); Lymphocytes # (auto) 1.1 uL; Lymphocytes % (auto) 13.8 % (10.0-50.0); Mean Corpuscular Hemoglobin 29.1 pg (28.0-32.0); Mean Corpuscular Hgb Conc. 33.8 g/dL (32.0-36.0); Mean Corpuscular Volume 85.9 fL (80.0-100.0); Monocytes # (auto) 0.6 uL; Monocytes % (auto) 7.5 % (0.0-12.0); Neutrophils # (auto) 6.5 uL; Neutrophils % (auto) 77.7 % (37.0-80.0); Nucleated Red Blood Cells % 0.3 %; Platelet Count (auto) 255 10^3/uL (140-450); White Blood Cell 8.3 10^3/uL (4.4-10.8)
[2018-10-07 14:27] LABS: Albumin 3.5 g/dL (3.4-5.0); Anion Gap 9 (5-15); Blood Urea Nitrogen 14 mg/dL (7-18); Calcium 9.1 mg/dL (8.5-10.1); Carbon Dioxide 25 mmol/L (21-32); Chloride 107 mmol/L (98-107); Glucose 109 mg/dL (74-106); Potassium 4.4 mmol/L (3.5-5.1); Sodium 141 mmol/L (136-145)
[2018-10-07 14:34] LABS: Alanine Aminotransferase 35 U/L (16-61); Alkaline Phosphatase 97 U/L (45-117); Aspartate Aminotransferase 14 U/L (15-37); BUN/Creatinine Ratio 11.8; Bilirubin, Total 0.6 mg/dL (0.2-1.0); GFR African American 79 mL/min; GFR Non-African American 65 mL/min; Total Protein 7.3 g/dL (6.4-8.2)
[2018-10-07 16:39] LABS: Urine Bacteria NONE SEEN /hpf (None Seen); Urine Blood Negative /uL (Negative); Urine Specific Gravity 1.024 (1.001-1.035); Urine WBC 1 /hpf (0 - 3)
[2018-10-07 16:53] LABS: Alcohol, Urine < 3.0 mg/dL (0-5); Amphetamine Screen, Urine NEGATIVE (NEGATIVE); Barbiturate Scree,Urine NEGATIVE (NEGATIVE); Benzodiazephine Screen, Urine NEGATIVE (NEGATIVE); Cannabinoid Screen, Urine NEGATIVE (NEGATIVE); Cocaine Screen, Urine NEGATIVE (NEGATIVE); Phencyclidine Screen, Urine NEGATIVE (NEGATIVE)
[2018-10-07 17:02] LABS: Opiate Scree,Urine POSITIVE (NEGATIVE)
[2018-10-07] MEDS ORDERED: HYDROcodone-ACET 10/325MG TAB PO ONE (18:45)
[2018-10-07 19:08] VITALS: BP 110/72
== END 2018-10-07 20:38 | disposition home or self-care (01) ==
LOC: EDBD 12:13 → ER 12:17
DX: G89.4 Chronic pain syndrome (principal); R51 Headache; F41.9 Anxiety disorder, unspecified; I25.119 Atherosclerotic heart disease of native coronary artery with unspecified angina pectoris; J44.9 Chronic obstructive pulmonary disease, unspecified; F32.9 Major depressive disorder, single episode, unspecified; E78.5 Hyperlipidemia, unspecified; I10 Essential (primary) hypertension; I25.2 Old myocardial infarction; F20.9 Schizophrenia, unspecified; F17.210 Nicotine dependence, cigarettes, uncomplicated; Z86.73 Personal history of transient ischemic attack (TIA), and cerebral infarction without residual deficits; Z98.61 Coronary angioplasty status; Z79.899 Other long term (current) drug therapy; Z79.82 Long term (current) use of aspirin
CPT/HCPCS: 36415; 70450; 80053; 80307; 81001; 84484; 85025; 93005; 94761

== ENCOUNTER 2019-03-12 21:08 | Emergency (ER) | payer OTHER, MEDICAID ==
[~2019-03-12] VITALS: Ht 170.2 cm; Wt 108.9 kg
[2019-03-12 22:00] LABS: Basophils # (auto) 0 uL; Basophils % (auto) 0.8 % (0.0-2.0); Eosinophils # (auto) 0.1 uL; Eosinophils % (auto) 2.9 % (0.0-7.0); Hematocrit 41.8 % (41.0-53.0); Hemoglobin 14.1 g/dL (13.5-17.5); Lymphocytes # (auto) 1.4 uL; Lymphocytes % (auto) 26.8 % (10.0-50.0); Mean Corpuscular Hemoglobin 28.6 pg (28.0-32.0); Mean Corpuscular Hgb Conc. 33.7 g/dL (32.0-36.0); Mean Corpuscular Volume 85.1 fL (80.0-100.0); Monocytes # (auto) 0.6 uL; Monocytes % (auto) 12.4 % (0.0-12.0); Neutrophils # (auto) 2.9 uL; Neutrophils % (auto) 57.1 % (37.0-80.0); Nucleated Red Blood Cells % 0.1 %; Platelet Count (auto) 184 10^3/uL (140-450); Red Blood Cells 4.92 10^6/uL (4.5-5.90); Red Cell Distribution Width 15.7 % (11.8-14.3); White Blood Cell 5.1 10^3/uL (4.4-10.8)
[2019-03-12 22:18] LABS: Alanine Aminotransferase 33 U/L (16-61); Albumin 3.4 g/dL (3.4-5.0); Anion Gap 5 (5-15); Aspartate Aminotransferase 12 U/L (15-37); BUN/Creatinine Ratio 14.9; Blood Urea Nitrogen 17 mg/dL (7-18); Calcium 8.9 mg/dL (8.5-10.1); Carbon Dioxide 28 mmol/L (21-32); Chloride 108 mmol/L (98-107); GFR African American 83 mL/min; GFR Non-African American 69 mL/min; Glucose 83 mg/dL (74-106); Potassium 4.3 mmol/L (3.5-5.1); Sodium 141 mmol/L (136-145)
[2019-03-12 22:22] LABS: Alkaline Phosphatase 108 U/L (45-117); Bilirubin, Total 0.5 mg/dL (0.2-1.0); INR 1.03 (0.9-1.15); Partial Thromboplastin Time 25.2 sec (23.64-32.05); Total Protein 6.5 g/dL (6.4-8.2)
[2019-03-13 00:13] VITALS: BP 120/63
[2019-03-13] MEDS ORDERED: LEVETIRACETAM INJ 1,000 MG in D5W 5% 100 ML IV ONE (01:00)
[2019-03-13] MEDS ORDERED: LEVETIRACETAM 500 MG/5ML INJ IV ONE (01:09)
== END 2019-03-13 01:40 | disposition home or self-care (01) ==
LOC: EDBD 21:08 → ER 21:13
DX: S16.1XXA Strain of muscle, fascia and tendon at neck level, initial encounter (principal); S00.93XA Contusion of unspecified part of head, initial encounter; G40.409 Other generalized epilepsy and epileptic syndromes, not intractable, without status epilepticus; I25.10 Atherosclerotic heart disease of native coronary artery without angina pectoris; J44.9 Chronic obstructive pulmonary disease, unspecified; E78.00 Pure hypercholesterolemia, unspecified; I10 Essential (primary) hypertension; I25.2 Old myocardial infarction; F17.210 Nicotine dependence, cigarettes, uncomplicated; Z86.73 Personal history of transient ischemic attack (TIA), and cerebral infarction without residual deficits; W22.8XXA Striking against or struck by other objects, initial encounter; Y93.89 Activity, other specified; Y92.89 Other specified places as the place of occurrence of the external cause; Y99.8 Other external cause status
CPT/HCPCS: 36415; 70450; 71250; 72125; 74176; 80053; 82542; 84484; 85025; 85610; 85730; 93005; 96365; 99284; J1953; J7060